=== PATIENT | female | born 1995 | race Caucasian/White ===

== ENCOUNTER 2021-01-26 03:30 | Emergency (ER) | payer BC ==
[2021-01-26] MEDS ORDERED: Ketorolac 30 MG/ML SDV IM ONE (04:25)
--- NOTE | 2021-01-26 04:35 | EDM.PDOC ---
ED HPI GENERAL MEDICAL PROBLEM - General Chief Complaint: Genitourinary Problem Stated Complaint: BLADDER INFECTION Time Seen by Provider: 01/26/21 03:48 Source of Information: Reports: Patient History Limitations: Reports: No Limitations - History of Present Illness INITIAL COMMENTS - FREE TEXT/NARRATIVE: Magdy is a 25-year-old female presenting to the ED for evaluation of pelvic pain and hematuria. Patient had acute onset of symptoms about an hour prior to arrival. She did report having intercourse 2 days ago. She has had 1 previous UTI when she was 14 years old. She denies any fever, chills, back pain but has had some nausea secondary to the pelvic pain. She does not have any history of kidney stones. She does not drink carbonated beverages. Does have urgency and frequency with burning at the end of the urination. Pelvic Pain Score (Numeric/FACES): 3 - Related Data Allergies Allergy/AdvReac Type Severity Reaction Status Date / Time amoxicillin Allergy Rash Verified 01/26/21 03:55 Penicillins Allergy Rash Verified 01/26/21 03:54 Past Medical History Gastrointestinal History: Reports: Irritable Bowel Syndrome Genitourinary History: Reports: Other (See Below) Other Genitourinary History: question UTI Social & Family History - Tobacco Use Tobacco Use Status *Q: Never Tobacco User - Caffeine Use Caffeine Use: Reports: Coffee - Alcohol Use Number of Drinks Per Day: 1 ED ROS GENERAL - Review of Systems Review Of Systems: See Below Constitutional: Reports: No Symptoms HEENT: Reports: No Symptoms Respiratory: Reports: No Symptoms Cardiovascular: Reports: No Symptoms Endocrine: Reports: No Symptoms GI/Abdominal: Reports: Abdominal Pain (Suprapubic abdominal pain), Nausea : Reports: Dysuria, Frequency, Hematuria, Pain, Urgency Musculoskeletal: Reports: Back Pain (Low back pain) Skin: Reports: No Symptoms Neurological: Reports: No Symptoms Psychiatric: Reports: No Symptoms Hematologic/Lymphatic: Reports: No Symptoms Immunologic: Reports: No Symptoms ED EXAM, RENAL/ - Physical Exam Exam: See Below Exam Limited By: No Limitations General Appearance: Alert, Anxious, Moderate Distress Eye Exam: Bilateral Eye: EOMI, PERRL Throat/Mouth: Normal Inspection, Normal Lips, Normal Oropharynx, Normal Voice, No Airway Compromise Respiratory/Chest: No Respiratory Distress, Lungs Clear, Normal Breath Sounds Cardiovascular: Normal Peripheral Pulses, Regular Rate, Rhythm, No Murmur GI/Abdominal: Normal Bowel Sounds, Soft, Tender. No: Guarding (Prepubic tenderness to palpation), Rigid, Rebound Back Exam: Normal Inspection, Full Range of Motion. No: CVA Tenderness (R), CVA Tenderness (L) Extremities: Normal Inspection, Normal Range of Motion Neurological: Alert, Oriented, Normal Cognition, No Motor/Sensory Deficits Psychiatric: Normal Affect, Normal Mood Skin Exam: Warm, Dry Lymphatic: No Adenopathy Course - Vital Signs Last Recorded V/S: Last Vital Signs Temp 36.8 C 01/26/21 04:00 Pulse 111 H 01/26/21 04:00 Resp 18 01/26/21 03:51 BP 118/71 01/26/21 04:00 Pulse Ox - Orders/Labs/Meds Labs: Laboratory Tests 01/26/21 01/26/21 Range/Units 03:55 05:23 Urine Color Red A (YELLOW) Urine Appearance Turbid A (CLEAR) Urine pH 6.5 (5.0-8.0) Ur Specific [place] >= 1.030 (1.008-1.030) Urine Protein >=300 H (NEGATIVE) mg/dL Urine Glucose (UA) Negative (NEGATIVE) mg/dL Urine Ketones Trace H (NEGATIVE) mg/dL Urine Occult Blood Large H (NEGATIVE) Urine Nitrite Negative (NEGATIVE) Urine Bilirubin Negative (NEGATIVE) Urine Urobilinogen 0.2 (0.2-1.0) EU/dL Ur Leukocyte Esterase Negative (NEGATIVE) Urine RBC Packed H (0-5) Urine WBC (0-5) Urine HCG, Qual Negative Meds: Medications Discontinued Medications Generic Name Dose Route Start Last Admin Trade Name Danielq PRN Reason Stop Dose Admin Ketorolac Tromethamine 30 mg 01/26/21 04:25 01/26/21 04:31 Ketorolac 30 Mg/Ml Sdv IM 01/26/21 04:26 30 mg ONETIME ONE Administration Phenazopyridine HCl 190 mg 01/26/21 05:01 01/26/21 05:06 Phenazopyridine 95 Mg Tab PO 01/26/21 05:02 190 mg ONETIME ONE Administration - Radiology Interpretation Free Text/Narrative:: I reviewed the CT of the abdomen and pelvis without contrast and report showing: Findings: There is normal renal parenchymal attenuation without hydronephrosis. No stones are seen in the renal collecting systems, ureters, or urinary bladder. Small amorphous slightly hyperdense focus in the right posterior aspect of the urinary bladder likely represents blood products. There is unremarkable noncontrast appearance of the liver, gallbladder, spleen, pancreas, and adrenal glands. There is normal caliber of the abdominal aorta. There is no abdominal or pelvic lymphadenopathy. The uterus and ovaries are grossly unremarkable. The stomach and duodenum are unremarkable. There are no abnormally distended small bowel loops. The appendix is noninflamed. There is no colonic wall thickening or mesenteric edema. Prominent fecal material is noted throughout the colon, suggesting constipation. Small focus of subcutaneous air and ground-glass opacity in the subcutaneous tissues of the right lower back/upper buttock presumably relate to recent injection. The osseous structures are unremarkable. The included lung bases are clear. Impression: 1. Small amorphous hyperdensity in the right posterior aspect of the urinary bladder lumen, likely representing blood products. No nephrolithiasis or urinary obstruction. 2. Other incidental findings, as above. - Re-Assessments/Exams Free Text/Narrative Re-Assessment/Exam: 01/26/21 04:44 I reviewed the urinalysis showing packed field of RBCs. They are not able to calculate any WBCs because there are so many RBCs. Leukocyte esterase is negative. Nitrites are negative. With this it is unlikely that there is a significant infection. We will proceed with a CT of the abdomen and pelvis without contrast to evaluate for possible stones. 01/26/21 06:05 CT of the abdomen pelvis without contrast showed a small area of hyperdensity in the bladder likely blood products but no evidence for any other intra-abdominal abnormalities. There is no sign of nephrolithiasis or ureterolithiasis. There is no perinephric stranding or hydronephrosis. Given these findings including the hematuria, her symptoms are likely due to an acute cystitis due to a urinary tract infection. We will put her on cephalexin 500 mg twice daily for 7 days and Pyridium 200 mg every 6 hours as needed for bladder pain x2 days. She should push adequate fluids to prevent dehydration and increase urine production. Departure - Departure Time of Disposition: 06:08 Disposition: Home, Self-Care 01 Clinical Impression: Urinary tract infection with hematuria Qualifiers: Urinary tract infection type: acute cystitis Qualified Code(s): N30.01 - Acute cystitis with hematuria - Discharge Information Instructions: Urinary Tract Infection, Adult Referrals: PCP,None [Primary Care Provider] - Forms: ED Department Discharge Care Plan Goals: Your work-up today has shown that you likely have blood in your urine from a urinary tract infection involving significant inflammation of the wall of the bladder. We are going to put you on an antibiotic called cephalexin which you again to take twice daily for the next 7 days. I have sent this prescription out to the [facility] machine in the lobby so you may start it this morning. In addition, I have sent a prescription for Pyridium to help numb the bladder to try to reduce the amount of pain you are having when voiding. You may take this up to 4 times a day for the next 2 to 3 days but do not extend it beyond 3 days. Keep in mind that Pyridium can stay in close so you may want a wear a padding liner if you have any urinary incontinence. Make sure that you are pushing plenty of water to increase your urine production which will help you clear the infection and prevent you from developing clots in the bladder. Sepsis Event Note (ED) - Evaluation Sepsis Screening Result: No Definite Risk - Focused Exam Vital Signs: Vital Signs Temp Pulse Resp BP 01/26/21 04:00 36.8 C 111 H 118/71 01/26/21 03:51 36.8 C 111 H 18 118/71 - Problem List & Annotations (1) Urinary tract infection with hematuria SNOMED Code(s): 01547023 Code(s): N39.0 - URINARY TRACT INFECTION, SITE NOT SPECIFIED; R31.9 - HEMATURIA, UNSPECIFIED Status: Acute Priority: Medium Current Visit: Yes Qualifiers: Urinary tract infection type: acute cystitis Qualified Code(s): N30.01 - Acute cystitis with hematuria - Problem List Review Problem List Initiated/Reviewed/Updated: Yes
[2021-01-26] MEDS ORDERED: Phenazopyridine 95 MG Tab PO ONE (05:01)
--- NOTE | 2021-01-26 06:04 | CRLCT ---
For Patients: As a result of the Century Cures Act, medical imaging exams and procedure reports are released immediately into your electronic medical record. You may view this report before your referring provider. If you have questions, please contact your health care provider. Indication: Pelvic pain, hematuria Technique: Nonenhanced axial CT imaging through the abdomen and pelvis. Sagittal and coronal reconstructions are provided. Comparison: None Findings: There is normal renal parenchymal attenuation without hydronephrosis. No stones are seen in the renal collecting systems, ureters, or urinary bladder. Small amorphous slightly hyperdense focus in the right posterior aspect of the urinary bladder likely represents blood products. There is unremarkable noncontrast appearance of the liver, gallbladder, spleen, pancreas, and adrenal glands. There is normal caliber of the abdominal aorta. There is no abdominal or pelvic lymphadenopathy. The uterus and ovaries are grossly unremarkable. The stomach and duodenum are unremarkable. There are no abnormally distended small bowel loops. The appendix is noninflamed. There is no colonic wall thickening or mesenteric edema. Prominent fecal material is noted throughout the colon, suggesting constipation. Small focus of subcutaneous air and ground-glass opacity in the subcutaneous tissues of the right lower back/upper buttock presumably relate to recent injection. The osseous structures are unremarkable. The included lung bases are clear. Impression: 1. Small amorphous hyperdensity in the right posterior aspect of the urinary bladder lumen, likely representing blood products. No nephrolithiasis or urinary obstruction. 2. Other incidental findings, as above. Please note that all CT scans at this facility use dose modulation, iterative reconstruction, and/or weight-based dosing when appropriate to reduce radiation dose to as low as reasonably achievable. Dictated by Chari Sanchez MD @ 01/26/2021 6:03:[address] Chari Sanchez @ Jan 26 2021 6:03AM
== END 2021-01-26 06:30 | disposition home or self-care (01) ==
LOC: JP.ED 03:30
DX: N30.01 Acute cystitis with hematuria (principal); Z88.0 Allergy status to penicillin
CPT/HCPCS: 74176; 81001; 81025; 96372; 99284; A9270; J1885